=== PATIENT | female | born 2000 | race Hispanic/Latino ===

== ENCOUNTER 2018-04-04 23:40 | Emergency (ER) | payer OTHER ==
[2018-04-05] MEDS ORDERED: Cyclobenzaprine 10 MG TAB ONE (00:58)
[2018-04-05] MEDS ORDERED: Ketorolac Tromethamine 60 MG/2 ML VIAL ONE (01:26)
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
== END 2018-04-05 01:56 | disposition home or self-care (01) ==
LOC: ERS 23:40
DX: S16.1XXA Strain of muscle, fascia and tendon at neck level, initial encounter (principal); S20.212A Contusion of left front wall of thorax, initial encounter; S70.312A Abrasion, left thigh, initial encounter; J45.909 Unspecified asthma, uncomplicated; F41.9 Anxiety disorder, unspecified; V89.2XXA Person injured in unspecified motor-vehicle accident, traffic, initial encounter; Y92.481 Parking lot as the place of occurrence of the external cause
CPT/HCPCS: 71045; 72125; 96372; J1885